=== PATIENT | male | born 1975 | race African-American/Black ===

== ENCOUNTER 2017-06-26 06:41 | Emergency (ER) | payer BC ==
[~2017-06-26] VITALS: Ht 175.3 cm; Wt 95.0 kg
[2017-06-26] MEDS ORDERED: IBUPROFEN 600MG TABLET PO STA (14:58)
[2017-06-26 15:19] VITALS: BP 130/88
== END 2017-06-26 17:16 | disposition home or self-care (01) ==
LOC: ER 07:44
DX: S93.602A Unspecified sprain of left foot, initial encounter (principal); X50.1XXA Overexertion from prolonged static or awkward postures, initial encounter; Y93.89 Activity, other specified; Y92.89 Other specified places as the place of occurrence of the external cause; Y99.8 Other external cause status
CPT/HCPCS: 73630; 99284